=== PATIENT | female | born 1935 | race Caucasian/White ===

== ENCOUNTER 2019-03-31 08:57 | Day surgery (SDC) | payer OTHER ==
[~2019-03-31] VITALS: Ht 160 cm; Wt 73.3 kg
[~2019-03-31 08:57] MED LIST: CHOL10002 PO; Citalopram HBr20 MG PO; LEVSOD100 PO; MELA3 PO; Prilosec Otc20 MG
--- NOTE | 2019-03-31 09:43 | NUR ---
Ambulatory in Day Surgery Patient states colon prep results clear. History, Chart, Medications and Allergies reviewed before start of procedure. Pre-Op teaching done. Pt verbalizes understanding. Patient States Post-Procedure ride home has been arranged.
--- NOTE | 2019-03-31 10:58 | NUR ---
03/31/19 1058 Glo [place] History, Chart, Medications and Allergies reviewed before start of procedure. PATIENT CONFIRMS NPO STATUS AND AGREES WITH SCHEDULED PROCEDURE. MONITOR INTACT WITH CONTINUOUS PULSE OXIMETRY AND INTERMITTENT BP. O2 VIA N/C INTACT THROUGHOUT SEDATION/PROCEDURE. 3-LEAD EKG REVIEWED WITH PHYSICIAN PRIOR TO START OF PROCEDURE. PATIENT DETERMINED TO BE ASA APPROPRIATE FOR PROPOFOL SEDATION PRIOR TO START OF PROCEDURE BY DR. BOLIVAR.
--- NOTE | 2019-03-31 12:10 | NUR ---
Discharge instructions reviewed with patient. Patient verbalizes understanding. Copy given to patient to take home. Discharged via wheelchair to private car for ride home.
== END 2019-03-31 12:11 | disposition home or self-care (01) ==
LOC: ORSCMMR 08:57 → ORD 10:00 → ORSCMMR 12:11
PROVIDERS: Internal Medicine Gastroenterology
PROC: 0DBN8ZX Excision of Sigmoid Colon, Via Natural or Artificial Opening Endoscopic, Diagnostic (ICD-10-PCS; principal; 2019-03-31 10:00)
PROC: 0DBE8ZX Excision of Large Intestine, Via Natural or Artificial Opening Endoscopic, Diagnostic (ICD-10-PCS; principal; 2019-03-31 10:00)
DX: Z12.11 Encounter for screening for malignant neoplasm of colon (principal); Z86.010 Personal history of colon polyps; D12.5 Benign neoplasm of sigmoid colon; D12.2 Benign neoplasm of ascending colon; K63.5 Polyp of colon; K57.30 Diverticulosis of large intestine without perforation or abscess without bleeding; E03.9 Hypothyroidism, unspecified; K21.9 Gastro-esophageal reflux disease without esophagitis; F32.9 Major depressive disorder, single episode, unspecified; Z79.899 Other long term (current) drug therapy; Z87.891 Personal history of nicotine dependence
CPT/HCPCS: 88305; J2704; J7120

== ENCOUNTER 2019-10-12 10:06 | Inpatient (IN) | payer OTHER ==
[~2019-10-12] VITALS: Ht 157.5 cm; Wt 74.9 kg
[~2019-10-12 10:06] MED LIST changes: -CHOL10002 PO; -Citalopram HBr20 MG PO; -LEVSOD100 PO; -Prilosec Otc20 MG
[2019-10-12 10:44] LABS: Hematocrit 21.3 % (33.0-51.0); Hemoglobin 6.3 g/dL (11.5-16.0); Mean Corpuscular HGB 26.3 pg (26.0-34.0); Mean Corpuscular HGB Conc 29.6 g/dL (31.5-36.5); Mean Corpuscular Volume 89 fL (80-100); Mean Platelet Volume 10.3 fL (9.1-12.4); Platelet Count 230 K/mm3 (150-400); RDW Coefficient Variation 18.7 % (11.7-14.2); RDW Standard Deviation 59.7 fL (35.1-46.3)
[2019-10-12 11:07] LABS: BAND PERCENT MAN 2 % (0-8); BASOPHILS PERCENT MAN 0 % (0-2); EOSINOPHILS PERCENT MAN 0 % (0-6); LYMPHOCYTES PERCENT MAN 10 % (21-46); MONOCYTES PERCENT MAN 22 % (4-13); SEG NEUTROPHILS PERCENT MAN 66 % (41-73); TOTAL CELLS COUNTED 100
[2019-10-12 11:19] LABS: Alanine Aminotransfer (ALT/SGP 28 U/L (12-78); Albumin, Blood 2.4 g/dL (3.4-5.0); Albumin/Globulin Ratio 0.6 (0.8-1.8); Alk Phos 115 U/L (50-136); Anion Gap 9 mmol/L (6-16); Aspartate Aminotrans (AST/SGOT 31 U/L (12-37); Bilirubin, Total 1.3 mg/dL (0.1-1.0); Blood Urea Nitrogen 20 mg/dL (8-24); Bun/Creatinine Ratio 18.2 (12.0-20.0); CO2, Blood 25 mmol/L (21-32); Calcium, Blood 8.8 mg/dL (8.5-10.1); Chloride, Blood 99 mmol/L (98-108); Globulin, Blood 3.7 g/dL (2.2-4.0); Glomerular Filtration Rate 50 (60-); Glucose, Blood 111 mg/dL (70-99); Sodium, Blood 133 mmol/L (136-145); Total Protein, Blood 6.1 g/dL (6.4-8.2); Troponin I <0.015 ng/mL (0.000-0.040)
[2019-10-12 11:43] LABS: Source, Urine Catheter
[2019-10-12 12:05] LABS: Bilirubin, Urine Neg (Neg); Blood, Urine Neg (Neg); Glucose Qualitative, Urine Neg (Neg); Ketones, Urine Neg (Neg); Leukocyte Esterase, Urine 1+ (Neg); Nitrite, Urine Neg (Neg); Protein, Urine Neg (Neg); Urobilinogen, Urine NORM (Normal)
[2019-10-12 12:14] LABS: Appearance, Urine Hazy (Clear); Color, Urine Yellow (P-Yellow)
[2019-10-12 12:18] LABS: Amorphous Mod (0-Heavy); Bacteria Few /hpf; Red Blood Cells, Urine 0-2 /hpf (0-2); Squamous Epithelial Cells Few /hpf (Few)
[2019-10-12 12:19] LABS: Calcium Oxalate Crystals Rare /hpf
[2019-10-12 12:23] LABS: U Amphetamine Screen Not Detected; U Barbituate Screen Not Detected; U Benzodiazapine Screen Not Detected; U Buprenorphine Screen Not Detected; U Cannabinoids Screen Not Detected; U Cocaine Screen Not Detected; U Methadone Screen Not Detected; U Methamphetamine Screen Not Detected; U Opiates Screen Not Detected; U Oxycodone Screen Not Detected; U Phencyclidine Screen Not Detected; U Propoxyphene Screen Not Detected
[2019-10-12] MEDS ORDERED: Prilosec Otc20 MG PO (12:43)
[2019-10-12] MEDS ORDERED: CENTRUM SILVER1 EAC2 PO (12:44)
[2019-10-12] MEDS ORDERED: VITAMIN D325 MC3 PO (12:44)
[2019-10-12] MEDS ORDERED: Citalopram HBr20 MG PO (12:44)
[2019-10-12] MEDS ORDERED: EUTHYROX50 MCG PO (12:44)
[2019-10-12] MEDS ORDERED: GINSENG EXTRAC100 MG PO (12:45)
[2019-10-12] MEDS ORDERED: ACET500 PO (12:45)
[2019-10-12 12:53] LABS: IMMATURE RETIC FRACTION 28.9 % (2.3-16.0); RETIC HGB EQUIVALENT 25.8 pg (28.20-36.60); RETICULOCYTE ABSOLUTE 0.1421 M/mm3 (0.0200-0.1100); RETICULOCYTE COUNT PERCENT 6.18 % (0.50-2.50)
--- NOTE | 2019-10-12 13:33 | NUR ---
Telephone report received from AMIRAH Desai in the ED.
[2019-10-12 13:47] LABS: Percent Saturation 8.3 % (15.0-50.0)
--- NOTE | 2019-10-12 17:40 | NUR ---
First unit of blood transfused, and the pt was assisted to the bathroom by the PROFESSOR OF OCEANOGRAPHY. Blood pressure is improved. Pt states she had a good nap. Temperature increased slightly. The pt's lung sounds are clearer than before the transfusion was started, but fine crackles are still heard in the right lower lobe auscultated posteriorly. Second transfusion is going now.
--- NOTE | 2019-10-13 06:00 | NUR ---
SHIFT SUMMARY PT IS AN 84 Y/O FEMALE, ADMITTED FOR ANEMIA. SHE IS A&O X 2, MILDLY CONFUSED AT TIMES, AND A 1PA TO THE BATHROOM. PT RECEIVED HER SECOND OF TWO UNITS OF PRBCS, AND SPIKED A FEVER OF 101.0 AND CHILLS AFTER THE SECOND UNIT WAS COMPLETED. THE HOSPITALIST LOWELL BELTRAN WAS NOTIFIED, AND A TRANSFUSION REACTION PROTOCOL WAS STARTED. PER THE BLOOD BANK, HEMOLYTIC LAB TESTS WERE NEGATIVE. CURRENTLY AWAITING CULTURE RESULTS. TELE SHOWED NSR IN THE 70S. VITAL SIGNS OTHERWISE NORMAL. NO OTHER ACUTE CHANGES IN PT CONDITION NOTED DURING THE NIGHT. WILL CONTINUE TO MONITOR AND TREAT PER EMAR UNTIL HAND OFF TO DAY SHIFT RN.
[2019-10-13 07:13] LABS: Hematocrit 28.5 % (33.0-51.0); Hemoglobin 8.8 g/dL (11.5-16.0); Mean Corpuscular HGB 27.2 pg (26.0-34.0); Mean Corpuscular HGB Conc 30.9 g/dL (31.5-36.5); Mean Corpuscular Volume 88 fL (80-100); Mean Platelet Volume 10.4 fL (9.1-12.4); Platelet Count 225 K/mm3 (150-400); RDW Coefficient Variation 17.5 % (11.7-14.2); RDW Standard Deviation 55.6 fL (35.1-46.3); Red Blood Cell Count 3.24 M/mm3 (3.80-5.20); White Blood Cell Count 10.21 K/mm3 (4.00-11.30)
[2019-10-13 07:31] LABS: Albumin, Blood 2.3 g/dL (3.4-5.0); Albumin/Globulin Ratio 0.6 (0.8-1.8); Bilirubin, Total 1.6 mg/dL (0.1-1.0); Calcium, Blood 9.5 mg/dL (8.5-10.1); Creatinine, Blood 1.2 mg/dL (0.40-1.00); Globulin, Blood 3.8 g/dL (2.2-4.0); Potassium, Blood 4.4 mmol/L (3.5-5.5); Total Protein, Blood 6.1 g/dL (6.4-8.2)
[2019-10-13 07:58] LABS: BASOPHILS PERCENT MAN 1 % (0-2); EOSINOPHILS PERCENT MAN 0 % (0-6); LYMPHOCYTES ABSOLUTE MAN 1.22 K/mm3 (0.84-5.20); LYMPHOCYTES PERCENT MAN 12 % (21-46); MONOCYTES ABSOLUTE MAN 2.34 K/mm3 (0.16-1.47); MONOCYTES PERCENT MAN 23 % (4-13); NEUTROPHILS ABSOLUTE MAN 6.53 K/mm3 (1.96-9.15); SEG NEUTROPHILS PERCENT MAN 64 % (41-73); TOTAL CELLS COUNTED 100
[2019-10-13 10:41] LABS: International Normalized Ratio 1.15; Prothrombin Time Results 12.2 Sec (9.7-11.5)
[2019-10-13 10:49] LABS: Bilirubin, Direct 0.4 mg/dL (0.0-0.3); Bilirubin, Indirect 0.8 mg/dL (0.1-0.7); Bilirubin, Total 1.2 mg/dL (0.1-1.0)
[2019-10-13 14:15] LABS: BASOPHILS ABSOLUTE AUTO 0.05 K/mm3 (0.00-0.23); BASOPHILS PERCENT AUTO 1 % (0-2); EOSINOPHILS ABSOLUTE AUTO 0.04 K/mm3 (0.00-0.68); EOSINOPHILS PERCENT AUTO 0 % (0-6)
[2019-10-13 14:15] LABS: Stool Occult Blood Guaiac 1 Neg (Neg)
[2019-10-13 14:17] LABS: IMMATURE GRAN ABSOLUTE AUTO 0.07 K/mm3 (0.00-0.10); IMMATURE GRAN PERCENT AUTO 1 % (0-1); LYMPHOCYTES ABSOLUTE AUTO 1.53 K/mm3 (0.84-5.20); LYMPHOCYTES PERCENT AUTO 15 % (21-46); MONOCYTES ABSOLUTE AUTO 1.98 K/mm3 (0.16-1.47); MONOCYTES PERCENT AUTO 19 % (4-13); NEUTROPHILS PERCENT AUTO 65 % (41-73)
--- NOTE | 2019-10-13 19:32 | NUR ---
SHIFT SUMMARY: NO ACUTE EVENTS THIS SHIFT. DENIED PAIN. NO EVENTS ON TELEMETRY, SR 70-90. HAD CT ABD/PELVIS, TOLERATED WELL. POOR APPETITE AND PO INTAKE. DR. TREJO SAW PATIENT AT 1120 THIS MORNING. SPOKE WITH DAUGHTER JAIRON THIS EVENING, GAVE UPDATE ON PATIENT CONDITION.
[2019-10-13 23:30] LABS: Source, Urine Clean Catch
[2019-10-13 23:32] LABS: Bilirubin, Urine Neg (Neg); Blood, Urine Neg (Neg); Glucose Qualitative, Urine Neg (Neg); Ketones, Urine Neg (Neg); Leukocyte Esterase, Urine 1+ (Neg); Nitrite, Urine Neg (Neg); Protein, Urine 1+ (Neg); Specific Gravity, Urine 1.025 (1.003-1.022); Urobilinogen, Urine NORM (Normal)
[2019-10-13 23:40] LABS: Appearance, Urine Hazy (Clear); Color, Urine Yellow (P-Yellow)
[2019-10-13 23:41] LABS: Amorphous Light (0-Heavy); Bacteria Few /hpf; Red Blood Cells, Urine Not Seen /hpf (0-2); Squamous Epithelial Cells Many /hpf (Few)
--- NOTE | 2019-10-14 06:25 | NUR ---
SHIFT SUMMARY PATIENT VERY TIRED OVERNIGHT, HAD A DIFFICULT TIME STAYING AWAKE DURING REGULAR WAKING HOURS. SHE HAD NO COMPLAINTS OF PAIN. PATIENT HAD A FEVER OF 100.7, PATIENT GIVEN TYLENOL, EXTRA BLANKETS REMOVED, AND THERMOSTAT IN ROOM TURNED DOWN, TEMPERATURE THEN RETURNED TO NORMAL RANGE. IV PATENT AND FLUSHED. BED IN LOWEST POSITION WITH WHEELS LOCKED AND ALARM ON. CALL LIGHT WITHIN REACH. REPORT GIVEN TO ONCOMING RN.
[2019-10-14 06:30] LABS: Cancer Antigen 125 11.4 U/mL (1.5-35.0); Cancer Antigen 19-9 3.6 U/mL (2.0-37.0); Carcinoembryonic Antigen 1.7 ng/mL (0.0-3.0)
[2019-10-14 08:11] LABS: COMPLEMENT C3, SERUM 123 mg/dL (82-167); COMPLEMENT C4, SERUM 9 mg/dL (14-44); HAPTOGLOBIN 195 mg/dL (41-333)
[2019-10-14 08:14] LABS: BASOPHILS ABSOLUTE AUTO 0.04 K/mm3 (0.00-0.23); BASOPHILS PERCENT AUTO 0 % (0-2); EOSINOPHILS ABSOLUTE AUTO 0.08 K/mm3 (0.00-0.68); EOSINOPHILS PERCENT AUTO 1 % (0-6); Hematocrit 29.1 % (33.0-51.0); Hemoglobin 8.9 g/dL (11.5-16.0); Mean Corpuscular HGB 27.2 pg (26.0-34.0); Mean Corpuscular HGB Conc 30.6 g/dL (31.5-36.5); Mean Corpuscular Volume 89 fL (80-100); Mean Platelet Volume 10.3 fL (9.1-12.4); Platelet Count 201 K/mm3 (150-400); RDW Coefficient Variation 17.7 % (11.7-14.2); RDW Standard Deviation 56.1 fL (35.1-46.3); Red Blood Cell Count 3.27 M/mm3 (3.80-5.20); White Blood Cell Count 9.54 K/mm3 (4.00-11.30)
[2019-10-14 08:17] LABS: IMMATURE GRAN ABSOLUTE AUTO 0.04 K/mm3 (0.00-0.10); IMMATURE GRAN PERCENT AUTO 0 % (0-1); LYMPHOCYTES ABSOLUTE AUTO 1.13 K/mm3 (0.84-5.20); LYMPHOCYTES PERCENT AUTO 12 % (21-46); MONOCYTES ABSOLUTE AUTO 2.05 K/mm3 (0.16-1.47); MONOCYTES PERCENT AUTO 22 % (4-13); NEUTROPHILS PERCENT AUTO 65 % (41-73)
[2019-10-14 08:36] LABS: Albumin, Blood 2.3 g/dL (3.4-5.0); Albumin/Globulin Ratio 0.8 (0.8-1.8); Bilirubin, Total 1.1 mg/dL (0.1-1.0); Bun/Creatinine Ratio 20.2 (12.0-20.0); Calcium, Blood 8.8 mg/dL (8.5-10.1); Creatinine, Blood 1.24 mg/dL (0.40-1.00); Globulin, Blood 2.9 g/dL (2.2-4.0); Potassium, Blood 4.6 mmol/L (3.5-5.5); Total Protein, Blood 5.2 g/dL (6.4-8.2)
--- NOTE | 2019-10-14 18:18 | NUR ---
SHIFT SUMMARY: PT ANXIOUS MOST OF THE DAY WAITING FOR LIVER BIOPSY. PROVIDED HER WITH VERBAL EDUCATION REGARDING PROCEDURE AND SHE VERBALIZED UNDERSTANDING. TOLERATED PROCEDURES WELL. HAS SMALL ADHESIVE BANDAGE IN EPIGASTRIC AREA, NO E/O BLEEDING OR HEMATOMA. NO EVENTS ON TELEMETRY, SR 80'S. GETTING UP TO BR AND CHAIR FOR MEALS WITH SBA, DENIES DIZZINESS. DENIES PAIN. REFUSING SCD'S. ADEQUATE PO INTAKE.
--- NOTE | 2019-10-15 06:16 | NUR ---
SHIFT SUMMARY PATIENT SLEPT WELL OVERNIGHT. HAD NO SIGNS OF BLEEDING. PATIENT SEEMED MORE AWAKE AND ALERT THAN YESTERDAY. SHE ONLY HAD COMPLAINT OF A HEADACHE FOR WHICH SHE RECEIVED TYLENOL PER EMAR. IV PATENT AND FLUSHED. BED IN LOWEST POSITION WITH WHEELS LOCKED AND ALARM ON. CALL LIGHT WITHIN REACH. REPORT GIVEN TO ONCOMING AMIRAH.
[2019-10-15 12:10] LABS: A/G RATIO 0.8 (0.7-1.7); ALBUMIN 2.3 g/dL (2.9-4.4); ALPHA-1-GLOBULIN 0.3 g/dL (0.0-0.4); ALPHA-2-GLOBULIN 0.8 g/dL (0.4-1.0); BETA GLOBULIN 0.9 g/dL (0.7-1.3); GAMMA GLOBULIN 0.9 g/dL (0.4-1.8); GLOBULIN, TOTAL 2.9 g/dL (2.2-3.9); M-SPIKE Not Observed g/dL (Not Observed); PROTEIN, TOTAL, SERUM 5.2 g/dL (6.0-8.5)
[2019-10-15 13:08] LABS: ANTI-DSDNA ANTIBODIES 2 IU/mL (0-9); RNP ANTIBODIES 0.3 AI (0.0-0.9); SJOGREN'S ANTI-SS-A <0.2 AI (0.0-0.9); SMITH ANTIBODIES <0.2 AI (0.0-0.9)
--- NOTE | 2019-10-15 18:03 | NUR ---
PATIENT IS ALERT AND ORIENTED AND COOPERATIVE WITH CARE. PATIENT REQUESTED TO DISCHARGE HOME TOMORROW INSTEAD OF TODAY. PATIENT SUZANNE HAVE HELP AT HOME FROM HER DAUGHTER. SHE IS UP TO THE CHAIR 1PA. SHE SHOWERED TODAY. NO COMPLAINT'S OF PAIN. COMPLAINED OF CONGESTION, GIVEN FLONASE PER EMAR. WILL CONTINUE TO MONITOR.
--- NOTE | 2019-10-16 04:13 | NUR ---
SHIFT SUMMARY- PT. A&O, PLEASANT, AND COOPERATIVE WITH CARE. PT. ASLEEP MOST OF THE NIGHT, NO APPRENT DISTRESS NOTED, AND NO COMPLAINTS THIS SHIFT. PT. WAS INCONTINENT LAST NIGHT. ATTENDS IN PLACE. REPOSTIONED PRN AND FOR COMFORT. PLAN FOR POSS D/C IN AM. CALL LIGHT WITHIN REACH, SIDE RAILS UPX2, AND BED ALARM ON FOR SAFETY. WILL CONT TO MONITOR.
[2019-10-16 09:13] LABS: BASOPHILS ABSOLUTE AUTO 0.04 K/mm3 (0.00-0.23); BASOPHILS PERCENT AUTO 0 % (0-2); EOSINOPHILS ABSOLUTE AUTO 0.04 K/mm3 (0.00-0.68); EOSINOPHILS PERCENT AUTO 0 % (0-6); Hematocrit 29.5 % (33.0-51.0); Hemoglobin 9.1 g/dL (11.5-16.0); Mean Corpuscular HGB Conc 30.8 g/dL (31.5-36.5); Mean Corpuscular Volume 88 fL (80-100); Mean Platelet Volume 9.8 fL (9.1-12.4); Platelet Count 172 K/mm3 (150-400); RDW Coefficient Variation 17.9 % (11.7-14.2); RDW Standard Deviation 56.8 fL (35.1-46.3); Red Blood Cell Count 3.37 M/mm3 (3.80-5.20); White Blood Cell Count 10.13 K/mm3 (4.00-11.30)
[2019-10-16 09:15] LABS: IMMATURE GRAN ABSOLUTE AUTO 0.06 K/mm3 (0.00-0.10); IMMATURE GRAN PERCENT AUTO 1 % (0-1); LYMPHOCYTES ABSOLUTE AUTO 1.14 K/mm3 (0.84-5.20); LYMPHOCYTES PERCENT AUTO 11 % (21-46); MONOCYTES ABSOLUTE AUTO 2.04 K/mm3 (0.16-1.47); MONOCYTES PERCENT AUTO 20 % (4-13); NEUTROPHILS ABSOLUTE AUTO 6.81 K/mm3 (1.96-9.15); NEUTROPHILS PERCENT AUTO 67 % (41-73)
[2019-10-16 09:28] LABS: Bun/Creatinine Ratio 24.1 (12.0-20.0); Calcium, Blood 9.1 mg/dL (8.5-10.1); Potassium, Blood 4.2 mmol/L (3.5-5.5)
--- NOTE | 2019-10-16 15:40 | NUR ---
IV RITUXAN WAS STARTED AT 1400 AFTER PREMEDS 25 MIN EARLIER. SHE HAS BEEN INSTRUCTED TO NOTIFY ME IF SHE HAS ANY CHILLS, FEVER, SOB, PALPITATIONS OR FEELS ODD IN ANY OTHER WAY. RATE STARTED AT 41 MLS/HR AND HAS BEEN INCREASED BY 41 MLS/HR EVERY 30 MIN SINCE. SHE HAS BEEN MOSTLY SLEEPING AND HAS HAD NO COMPLAINTS. NO RESPIRATORY DISTRESS. IV SITE WNL.
--- NOTE | 2019-10-16 18:41 | NUR ---
SHIFT SUMMARY JOCE COMPLAINED OF MILD L SHOULDER PAIN AT HER JOINT THAT WAS MADE WORSE BY MOVEMENT, MADE BETTER BY TYLENOL. RECEIVED FIRST DOSE OF CHEMO, TOLERATED WELL. SON CAME TO VISIT. DR TREJO CAME TO SEE PT IN ORDER PULLER. INCONTINENT/CONTINENT THIS SHIFT. SCHEDULED TOILETING DONE, BUT PT USUALLY WET PRIOR TO GOING TO BR. SBA TO BR. UP IN CHAIR FOR MEALS. TELE DC'D. TOOK MEDS PRESCRIBED. WCTM
--- NOTE | 2019-10-16 19:47 | NUR ---
Met with patient and her son this morning. They had may questions. Pt stressing over quality of life. Review of potential symptoms and needs. Discussed strategies of maintaining quality of life. Review of was to conserve energy protect from fall risk and maintain appetite and some pleasure with foods. pt is willing to ry treatment and son gave her frequent rassurance that they will rsally the trops and take care of her. This gave her great comfort. Will return to speak with her alone and will have chaplian see her. Will reivew symptoms with her to report to her oncologist and give her some diversion tactics.
--- NOTE | 2019-10-17 04:40 | NUR ---
SHIFT SUMMARY- PT. HAD NO ACUTE EVENTS OVERNIGHT. ASLEEP T/O MOST OF THE NIGHT. NO APPARENT DISTRESS NOTED. INCONT, ATTENDS CHANGE DONE SEVERAL TIMES DURING THE SHIFT AND REPOSITIONED FOR COMFORT. PT. APPEARED VERY TIRED, NO COMPLAINTS OF PAIN OR DISCOMFORT. VSS, ON 2L NC. CALL LIGHT WITHIN REACH AND SIDE RAILS UPX2. WILL CONT TO MONITOR.
[2019-10-17 05:43] LABS: Bun/Creatinine Ratio 24.8 (12.0-20.0); Calcium, Blood 9.4 mg/dL (8.5-10.1); Creatinine, Blood 1.05 mg/dL (0.40-1.00); Potassium, Blood 4.8 mmol/L (3.5-5.5)
--- NOTE | 2019-10-17 10:58 | NUR ---
Pt affect bright states she was not incontinenet last night. first time in a long long time. Son at bedside questions on plan of care review of clinic setting and appointments scheduling advised first week plan for lot of education on disease process and treatment potocols.
--- NOTE | 2019-10-17 13:47 | NUR ---
will discuss a polst form with her son and send AD home with her.
--- NOTE | 2019-10-17 16:57 | NUR ---
SHIFT SUMMARY PT A/O X3, PLEASANT, AND COOPERATIVE WITH CARE. WAS FATIGUED AT THE BEGINNING OF THE SHIFT BUT THE FATIGUE HAS SUBSIDED. NO COMPLAINTS OF PAIN OR DISCOMFORT THIS SHIFT. 1 ASSIST TO THE BA W/FWW. NEED HOME O2 EVAL AND NIGH O2 MONITORING. MAY DC TOMORROW. VSS, WILL CONTINUE TO MONITOR.
--- NOTE | 2019-10-18 04:44 | NUR ---
SUMMARY PT HAD NO ISSUES NOTED. PT SLEEP STUDY IN PROGRESS. PT DENIES ANY DISCOMFORT OR SOB. PT HAS BEEN CHANGED NEEDED FOR INCONTINENCE. PT CURRENTLY AWAKE AFTER BEING CHANGED. CALL LIGHT IN REACH.
--- NOTE | 2019-10-18 07:10 | NUR ---
ASSUMED CARE: PT RESTING QUIETLY AT THIS TIME. BED ALARM ON. NO ACUTE NEEDS OR CONCERNS AT THIS TIME.
--- NOTE | 2019-10-18 13:20 | NUR ---
IV DC'D WNL. PT TAKEN OUT VIA WHEEL CHAIR BY VOLUNTEER. DISCHARGE INSTRUCTIONS DISCUSSED WITH PT AND SON. PT AWARE OF FOLLOW UP APPOINTMENTS. NO FURTHER NEEDS OR CONCERNS
--- NOTE | 2019-10-18 17:02 | NUR ---
theraputic visit with pt this morning before discharge for reassurances.
[2019-10-19 15:09] LABS: ANA DIRECT Positive (Negative); ANTI-CENTROMERE B ANTIBODIES <0.2 AI (0.0-0.9); ANTI-DNA (DS) AB QN 2 IU/mL (0-9); ANTI-JO-1 <0.2 AI (0.0-0.9); ANTICHROMATIN ANTIBODIES <0.2 AI (0.0-0.9); ANTIMYELOPEROXIDASE (MPO) ABS <9.0 U/mL (0.0-9.0); ANTIPROTEINASE 3 (PR-3) ABS <3.5 U/mL (0.0-3.5); ANTIRIBOSOMAL P ANTIBODIES <0.2 AI (0.0-0.9); ANTISCLERODERMA-70 ANTIBODIES <0.2 AI (0.0-0.9); ATYPICAL PANCA <1:20 titer (Neg:<1:20); CYTOPLASMIC (C-ANCA) <1:20 titer (Neg:<1:20); PERINUCLEAR (P-ANCA) <1:20 titer (Neg:<1:20); RNP ANTIBODIES 0.3 AI (0.0-0.9); SJOGREN'S ANTI-SS-A <0.2 AI (0.0-0.9); SJOGREN'S ANTI-SS-B 1.1 AI (0.0-0.9); SMITH ANTIBODIES <0.2 AI (0.0-0.9); SMITH/RNP ANTIBODIES <0.2 AI (0.0-0.9)
[2019-10-19 18:14] LABS: Test Name 3001495
== END 2019-10-18 13:19 | disposition home or self-care (01) | DRG 841 ==
LOC: ER 10:06 → MEDS 13:12 → ENPENDDIS 10-18 12:38 → MEDS 10-18 13:19
PROVIDERS: Emergency Medicine; Internal Medicine; Internal Medicine Hematology & Oncology; Nurse Practitioner Acute Care; Pathology Clinical Pathology/Laboratory Medicine; ADMIT Internal Medicine
PROC: 0FB23ZX Excision of Left Lobe Liver, Percutaneous Approach, Diagnostic (ICD-10-PCS; principal; 2019-10-14)
DX: C83.30 Diffuse large B-cell lymphoma, unspecified site (principal); E87.1 Hypo-osmolality and hyponatremia; E03.9 Hypothyroidism, unspecified; Z87.891 Personal history of nicotine dependence; N18.3 Chronic kidney disease, stage 3 (moderate); E78.5 Hyperlipidemia, unspecified; K21.9 Gastro-esophageal reflux disease without esophagitis; R09.02 Hypoxemia; Z20.828 Contact with and (suspected) exposure to other viral communicable diseases; D63.0 Anemia in neoplastic disease
CPT/HCPCS: 36415; 47000; 70450; 71045; 71260; 74177; 77012; 80048; 80053; 81001; 82105; 82247; 82248; 82272; 82378; 82607; 82728; 82746; 83010; 83520; 83540; 83550; 83615; 83880; 84145; 84165; 84484; 85025; 85045; 85060; 85610; 85730; 86160; 86225; 86235; 86256; 86301; 86304; 86430; 86850; 86880; 86900; 86901; 86923; 87040; 87086; 88307; 88341; 88342; 93005; 93010; 93306; 94762; 97110; 97162; 97165; 97530; 97535; 99285-25; A9270; A9270-GY; J1100; J1200; J1940; J2405; J7040; J9312; P9016; Q0163; Q9967; U0002

== ENCOUNTER 2020-01-10 15:38 | Emergency (ER) | payer OTHER ==
[~2020-01-10] VITALS: Ht 157.5 cm; Wt 70.3 kg
[~2020-01-10 15:38] MED LIST changes: +ACET500 PO; +CENTRUM SILVER1 EAC2 PO; +Citalopram HBr20 MG PO; +EUTHYROX50 MCG PO; +GINSENG EXTRAC100 MG PO; +Prilosec Otc20 MG PO; +VITAMIN D325 MC3 PO
[2020-01-10] MEDS ORDERED: OMEP20ER PO (16:15)
[2020-01-10] MEDS ORDERED: ONDA8 PO (16:16)
[2020-01-10 16:39] LABS: BASOPHILS ABSOLUTE AUTO 0.01 K/mm3 (0.00-0.23); BASOPHILS PERCENT AUTO 0 % (0-2); EOSINOPHILS ABSOLUTE AUTO 0.04 K/mm3 (0.00-0.68); EOSINOPHILS PERCENT AUTO 0 % (0-6); Hematocrit 26.1 % (33.0-51.0); Hemoglobin 8.9 g/dL (11.5-16.0); IMMATURE GRAN ABSOLUTE AUTO 0.06 K/mm3 (0.00-0.10); IMMATURE GRAN PERCENT AUTO 1 % (0-1); LYMPHOCYTES ABSOLUTE AUTO 0.53 K/mm3 (0.84-5.20); LYMPHOCYTES PERCENT AUTO 5 % (21-46); MONOCYTES ABSOLUTE AUTO 0.76 K/mm3 (0.16-1.47); MONOCYTES PERCENT AUTO 8 % (4-13); Mean Corpuscular HGB 31.7 pg (26.0-34.0); Mean Corpuscular HGB Conc 34.1 g/dL (31.5-36.5); Mean Corpuscular Volume 93 fL (80-100); Mean Platelet Volume 9.8 fL (9.1-12.4); NEUTROPHILS ABSOLUTE AUTO 8.56 K/mm3 (1.96-9.15); NEUTROPHILS PERCENT AUTO 86 % (41-73); Platelet Count 160 K/mm3 (150-400); RDW Coefficient Variation 16.9 % (11.7-14.2); RDW Standard Deviation 56.8 fL (35.1-46.3); Red Blood Cell Count 2.81 M/mm3 (3.80-5.20); White Blood Cell Count 9.96 K/mm3 (4.00-11.30)
[2020-01-10 16:48] LABS: Albumin, Blood 2.7 g/dL (3.4-5.0); Albumin/Globulin Ratio 0.7 (0.8-1.8); Bilirubin, Total 0.5 mg/dL (0.1-1.0); Bun/Creatinine Ratio 15.5 (12.0-20.0); Calcium, Blood 9.2 mg/dL (8.5-10.1); Creatinine, Blood 1.16 mg/dL (0.40-1.00); Globulin, Blood 3.8 g/dL (2.2-4.0); Potassium, Blood 3.7 mmol/L (3.5-5.5); Total Protein, Blood 6.5 g/dL (6.4-8.2)
[2020-01-10 16:50] LABS: International Normalized Ratio 1.06; Prothrombin Time Results 11.3 Sec (9.7-11.5)
[2020-01-10 18:32] LABS: Influenza A, PCR Negative (NEGATIVE); Influenza B, PCR Negative (NEGATIVE); Resp Syncytial Virus, PCR Negative (NEGATIVE); SARS-Cov-2 (COVID-19) PCR, MMC Negative (NEGATIVE)
[2020-01-10 19:39] LABS: Bilirubin, Urine Neg (Neg); Blood, Urine 1+ (Neg); Color, Urine Yellow (P-Yellow); Glucose Qualitative, Urine Neg (Neg); Ketones, Urine Neg (Neg); Leukocyte Esterase, Urine 2+ (Neg); Nitrite, Urine Neg (Neg); Protein, Urine 1+ (Neg); Source, Urine Catheter; Urobilinogen, Urine NORM (Normal); pH, Urine 6.5 (5.0-8.0)
[2020-01-10 20:14] LABS: Appearance, Urine Hazy (Clear)
[2020-01-10 20:15] LABS: Red Blood Cells, Urine 0-2 /hpf (0-2); Squamous Epithelial Cells Few /hpf (Few)
[2020-01-10 20:17] LABS: Hyaline Casts Rare /lpf (0-2); Transitional Epithelial Cells Mod /hpf (0-Rare)
[2020-01-10 20:18] LABS: Bacteria Rare /hpf
[2020-01-10] MEDS ORDERED: Cipro500 MG PO (20:38)
[2020-01-10] MEDS ORDERED: Flagyl500 MG PO (20:38)
[2020-01-10] MEDS ORDERED: ONDA4ODT MM (20:38)
[2020-01-10] MEDS ORDERED: LOPE2C PO (20:38)
== END 2020-01-10 22:08 | disposition home or self-care (01) ==
LOC: ER 15:38
PROVIDERS: Emergency Medicine
DX: K52.9 Noninfective gastroenteritis and colitis, unspecified (principal); N18.30 Chronic kidney disease, stage 3 unspecified; E78.5 Hyperlipidemia, unspecified; E03.9 Hypothyroidism, unspecified; K21.9 Gastro-esophageal reflux disease without esophagitis; F32.9 Major depressive disorder, single episode, unspecified; Z20.828 Contact with and (suspected) exposure to other viral communicable diseases; Z88.4 Allergy status to anesthetic agent; Z79.899 Other long term (current) drug therapy; Z87.891 Personal history of nicotine dependence
CPT/HCPCS: 0241U; 36415; 71045; 71260; 74177; 80053; 81001; 83605; 85025; 85610; 85730; 86850; 86900; 86901; 87086; 93005; 93010; 96361; 96365-59; 99285-25; A9270-GY; J0696; J7030; P9612; Q9967

== ENCOUNTER 2020-01-29 09:38 | Emergency (ER) | payer OTHER ==
[~2020-01-29] VITALS: Ht 157.5 cm; Wt 67.6 kg
[~2020-01-29 09:38] MED LIST changes: +AZIT250 PO; +Cipro500 MG PO; +Flagyl500 MG PO; +Flonase 0.05% N16 GM; +LOPE2C PO; +OMEP20ER PO; +ONDA4ODT MM; +ONDA8 PO; +PRED20 PO; +PROAIR DIGIHAL90 MCG INH; +TUMS500 MG PO
[2020-01-29 11:02] LABS: Base Excess Venous 6.7 mmol/L; PO2 Venous 63.4 mmHg (38-42); pH Blood Venous 7.49 (7.34-7.37)
[2020-01-29 11:04] LABS: BASOPHILS ABSOLUTE AUTO 0.03 K/mm3 (0.00-0.23); BASOPHILS PERCENT AUTO 0 % (0-2); EOSINOPHILS PERCENT AUTO 0 % (0-6); Hematocrit 26.8 % (33.0-51.0); Hemoglobin 8.8 g/dL (11.5-16.0); IMMATURE GRAN PERCENT AUTO 1 % (0-1); LYMPHOCYTES ABSOLUTE AUTO 0.12 K/mm3 (0.84-5.20); LYMPHOCYTES PERCENT AUTO 1 % (21-46); MONOCYTES ABSOLUTE AUTO 0.92 K/mm3 (0.16-1.47); MONOCYTES PERCENT AUTO 8 % (4-13); Mean Corpuscular HGB 31.3 pg (26.0-34.0); Mean Corpuscular HGB Conc 32.8 g/dL (31.5-36.5); Mean Corpuscular Volume 95 fL (80-100); Mean Platelet Volume 9.2 fL (9.1-12.4); NEUTROPHILS ABSOLUTE AUTO 11.14 K/mm3 (1.96-9.15); NEUTROPHILS PERCENT AUTO 91 % (41-73); Platelet Count 210 K/mm3 (150-400); RDW Coefficient Variation 18.2 % (11.7-14.2); RDW Standard Deviation 61.3 fL (35.1-46.3); Red Blood Cell Count 2.81 M/mm3 (3.80-5.20); White Blood Cell Count 12.31 K/mm3 (4.00-11.30)
[2020-01-29 11:25] LABS: Troponin I <0.015 ng/mL (0.000-0.040)
[2020-01-29 11:26] LABS: Alanine Aminotransfer (ALT/SGP 26 U/L (12-78); Albumin, Blood 2.5 g/dL (3.4-5.0); Albumin/Globulin Ratio 0.7 (0.8-1.8); Alk Phos 103 U/L (50-136); Anion Gap 7 mmol/L (6-16); Aspartate Aminotrans (AST/SGOT 46 U/L (12-37); Bilirubin, Total 0.9 mg/dL (0.1-1.0); Blood Urea Nitrogen 12 mg/dL (8-24); Bun/Creatinine Ratio 12.8 (12.0-20.0); CO2, Blood 30 mmol/L (21-32); Calcium, Blood 8.6 mg/dL (8.5-10.1); Chloride, Blood 93 mmol/L (98-108); Creatinine, Blood 0.94 mg/dL (0.40-1.00); Globulin, Blood 3.6 g/dL (2.2-4.0); Glomerular Filtration Rate >60 (60-); Glucose, Blood 92 mg/dL (70-99); Potassium, Blood 3.8 mmol/L (3.5-5.5); Sodium, Blood 130 mmol/L (136-145); Total Protein, Blood 6.1 g/dL (6.4-8.2)
[2020-01-29] MEDS ORDERED: Protonix40 MG PO (13:27)
[2020-01-29] MEDS ORDERED: Norco 5-325 Ta1 EACH PO (13:27)
[2020-01-29] MEDS ORDERED: ONDA4ODT SL (13:27)
== END 2020-01-29 14:21 | disposition home or self-care (01) ==
LOC: ER 09:38
PROVIDERS: Emergency Medicine
DX: K44.9 Diaphragmatic hernia without obstruction or gangrene (principal); C83.30 Diffuse large B-cell lymphoma, unspecified site; N18.30 Chronic kidney disease, stage 3 unspecified; E78.5 Hyperlipidemia, unspecified; E03.9 Hypothyroidism, unspecified; K21.9 Gastro-esophageal reflux disease without esophagitis; F32.9 Major depressive disorder, single episode, unspecified; Z87.891 Personal history of nicotine dependence; Z79.899 Other long term (current) drug therapy; Z79.52 Long term (current) use of systemic steroids; Z88.4 Allergy status to anesthetic agent
CPT/HCPCS: 36415; 71260; 74177; 80053; 82803; 83690; 83880; 84484; 85025; 93005; 93010; 96361; 96374; 96375; 99285-25; J2405; J3010; J7030; Q9967

== ENCOUNTER 2020-02-04 19:00 | Emergency (ER) | payer OTHER ==
[~2020-02-04] VITALS: Ht 157.5 cm; Wt 67.6 kg
[~2020-02-04 19:00] MED LIST changes: +Norco 5-325 Ta1 EACH PO; +ONDA4ODT SL; +Protonix40 MG PO
== END 2020-02-04 23:22 | disposition home or self-care (01) ==
LOC: ER 19:00
DX: S01.01XA Laceration without foreign body of scalp, initial encounter (principal); N18.30 Chronic kidney disease, stage 3 unspecified; E78.5 Hyperlipidemia, unspecified; E03.9 Hypothyroidism, unspecified; K21.9 Gastro-esophageal reflux disease without esophagitis; Z79.899 Other long term (current) drug therapy; Z23 Encounter for immunization; Z79.52 Long term (current) use of systemic steroids; Z88.4 Allergy status to anesthetic agent; Z87.891 Personal history of nicotine dependence; W01.198A Fall on same level from slipping, tripping and stumbling with subsequent striking against other object, initial encounter
CPT/HCPCS: 12002; 70450; 90471; 99284-25

== ENCOUNTER 2020-02-08 08:19 | Inpatient (IN) | payer OTHER ==
[~2020-02-08] VITALS: Ht 165.1 cm; Wt 76.1 kg
[2020-02-08 08:58] LABS: BASOPHILS ABSOLUTE AUTO 0.02 K/mm3 (0.00-0.23); BASOPHILS PERCENT AUTO 0 % (0-2); EOSINOPHILS PERCENT AUTO 0 % (0-6); Hematocrit 25.2 % (33.0-51.0); Hemoglobin 8.1 g/dL (11.5-16.0); IMMATURE GRAN ABSOLUTE AUTO 0.21 K/mm3 (0.00-0.10); IMMATURE GRAN PERCENT AUTO 2 % (0-1); LYMPHOCYTES ABSOLUTE AUTO 1.03 K/mm3 (0.84-5.20); LYMPHOCYTES PERCENT AUTO 11 % (21-46); MONOCYTES ABSOLUTE AUTO 0.55 K/mm3 (0.16-1.47); MONOCYTES PERCENT AUTO 6 % (4-13); Mean Corpuscular HGB 30.3 pg (26.0-34.0); Mean Corpuscular HGB Conc 32.1 g/dL (31.5-36.5); Mean Corpuscular Volume 94 fL (80-100); Mean Platelet Volume 10.4 fL (9.1-12.4); NEUTROPHILS ABSOLUTE AUTO 7.89 K/mm3 (1.96-9.15); NEUTROPHILS PERCENT AUTO 81 % (41-73); Platelet Count 113 K/mm3 (150-400); RDW Coefficient Variation 18.4 % (11.7-14.2); RDW Standard Deviation 62.2 fL (35.1-46.3); Red Blood Cell Count 2.67 M/mm3 (3.80-5.20)
[2020-02-08 09:13] LABS: Source, Urine Catheter
[2020-02-08 09:17] LABS: Albumin, Blood 2.5 g/dL (3.4-5.0); Albumin/Globulin Ratio 0.7 (0.8-1.8); Bilirubin, Total 0.7 mg/dL (0.1-1.0); Bun/Creatinine Ratio 19.6 (12.0-20.0); Calcium, Blood 8.9 mg/dL (8.5-10.1); Creatinine, Blood 1.12 mg/dL (0.40-1.00); Globulin, Blood 3.4 g/dL (2.2-4.0); Potassium, Blood 4.6 mmol/L (3.5-5.5); Total Protein, Blood 5.9 g/dL (6.4-8.2)
[2020-02-08 09:20] LABS: Bilirubin, Urine Neg (Neg); Blood, Urine 2+ (Neg); Glucose Qualitative, Urine Neg (Neg); Ketones, Urine Neg (Neg); Leukocyte Esterase, Urine 1+ (Neg); Nitrite, Urine Neg (Neg); Protein, Urine 4+ (Neg); Urobilinogen, Urine NORM (Normal)
[2020-02-08 09:38] LABS: Appearance, Urine Hazy (Clear); Color, Urine Yellow (P-Yellow)
[2020-02-08 09:41] LABS: Bacteria Many /hpf; Squamous Epithelial Cells Many /hpf (Few)
[2020-02-08 09:42] LABS: Amorphous Light (0-Heavy); Transitional Epithelial Cells Few /hpf (0-Rare)
[2020-02-08 10:03] LABS: Influenza A, PCR Negative (NEGATIVE); Influenza B, PCR Negative (NEGATIVE); Resp Syncytial Virus, PCR Negative (NEGATIVE); SARS-Cov-2 (COVID-19) PCR, MMC Negative (NEGATIVE)
--- NOTE | 2020-02-08 18:32 | NUR ---
SHIFT SUMMARY PT IS A&OX4. PT WAS A ER ADMIT THIS AFTERNOON. PT IS CURENTLY ON 2L O2 NC. PT DOES NOT USE O2 AT HOME. PT SKIN IS DRY WITH SCRATCHES ON THE ABDOMEN. PT COMPLAINS OF BEING ITCHY, LOTION APPLIED TO SKIN. PT HAS LIVER CANCER AND LAST CHEM WAS 2 WEEKS AGO. PT HAS AN 20G IV IN L FOREARM. PT HAS NOT GOTTEN OUT OF BED AND IS INCONNENT OF URINE AT BASELINE. PT FOLLOWS DIRECTION AND IS ABLE TO CHANGE POSITIONS IN BED WITH ASSISTANCE. PT JUST FINISHED DOSE OF IV ANTIBIOTICS AND IS CURENTLY SLEEPING IN ROOM WITH CALL LIGHT ON LAP.
--- NOTE | 2020-02-09 05:44 | NUR ---
HOMEBOUND TEACHER SUMMARY PT A&0X4, ABLE TO MAKE NEEDS KNOWN. CALLS APPROPRIATELY FOR ASSISTANCE. PLEASANT AND COOPERATIVE TO CARE. PT MEDICATED FOR PAIN PER EMAR. NO C/O CP OR SOB, CURRENTLY ON O2 2LPM VIA NC. PT MEDICATED FOR NAUSEA X1 THIS SHIFT. PT CALM AND RESTED IN BED AT THIS TIME. BED AT LOWEST POSITION. CALL LIGHT WITHIN REACH.
[2020-02-09 05:49] LABS: BASOPHILS ABSOLUTE AUTO 0.01 K/mm3 (0.00-0.23); BASOPHILS PERCENT AUTO 0 % (0-2); EOSINOPHILS PERCENT AUTO 0 % (0-6); Hematocrit 20.4 % (33.0-51.0); Hemoglobin 6.5 g/dL (11.5-16.0); IMMATURE GRAN ABSOLUTE AUTO 0.05 K/mm3 (0.00-0.10); IMMATURE GRAN PERCENT AUTO 1 % (0-1); LYMPHOCYTES PERCENT AUTO 6 % (21-46); MONOCYTES ABSOLUTE AUTO 0.28 K/mm3 (0.16-1.47); MONOCYTES PERCENT AUTO 6 % (4-13); Mean Corpuscular HGB 30.1 pg (26.0-34.0); Mean Corpuscular HGB Conc 31.9 g/dL (31.5-36.5); Mean Corpuscular Volume 94 fL (80-100); Mean Platelet Volume 11.4 fL (9.1-12.4); NEUTROPHILS ABSOLUTE AUTO 4.45 K/mm3 (1.96-9.15); NEUTROPHILS PERCENT AUTO 87 % (41-73); Platelet Count 53 K/mm3 (150-400); RDW Coefficient Variation 18.4 % (11.7-14.2); RDW Standard Deviation 62.4 fL (35.1-46.3); Red Blood Cell Count 2.16 M/mm3 (3.80-5.20); White Blood Cell Count 5.09 K/mm3 (4.00-11.30)
[2020-02-09 06:03] LABS: Bun/Creatinine Ratio 18.8 (12.0-20.0); Calcium, Blood 8.2 mg/dL (8.5-10.1); Creatinine, Blood 1.33 mg/dL (0.40-1.00); Potassium, Blood 4.2 mmol/L (3.5-5.5)
--- NOTE | 2020-02-09 16:26 | NUR ---
SHIFT SUMMARY PT IS A&OX4. PT IS 1 PERSON TRANSFER WITH [facility]. PT WAS UP IN CHAIR FOR LUNCH. PT HAS COMPLAINED OF PAIN IN UPPER RIGHT ABDOMEN. PT GOT A HEATING PAD AND MEDICATED FOR PAIN. DURING MORNING REPORT PT EXPERIENCED NAUSEA AND DRY HEAVING, PT MEDICATED WITH ZOFRAN AND HAS NOT HAD ANYMORE EPISODES. PT IS WEARING TEDS AND SCD'S WERE REMOVED DUE TO PETECHIAE. PT CURENTLY IN BED WITH CALL LIGHT W/IN REACH.
[2020-02-09] MEDS ORDERED: TRAM50 PO (18:04)
[2020-02-09 22:42] LABS: Hematocrit 20.9 % (33.0-51.0); Hemoglobin 6.6 g/dL (11.5-16.0)
--- NOTE | 2020-02-10 05:43 | NUR ---
SHIFT SUMMARY PT IS AN 84 Y/O FEMALE, ADMITTED FOR SEPSIS WITH A HX OF LIVER CA WITH METS. SHE IS A&O X 2, ON BEDREST. PT C/O PAIN AT START OF SHIFT, ORDERED TRAMADOL DID NOT RELIEVE IT. THE HOSPITALIST DR JUSTICE WAS NOTIFIED, AND OXYCODONE ORDERED. PT SLEPT WELL AFTER THAT. SHE RECEIVED 2 UNIT PRBC PER ORDER. HR WAS ELEVATED, ST IN THE 100-110S PER TELE MONTIOR TECH. VITAL SIGNS OTHERWISE STABLE. NO C/O NAUSEA OR SOB. PT IS ON 1L OF O2 VIA NC. NO OTHER ACUTE CHANGES IN PT CONDITION NOTED DURING THE NIGHT. WILL CONTINUE TO MONITOR AND TREAT PER EMAR UNTIL HAND OFF TO DAY SHIFT RN.
[2020-02-10 07:25] LABS: BASOPHILS ABSOLUTE AUTO 0.03 K/mm3 (0.00-0.23); BASOPHILS PERCENT AUTO 0 % (0-2); EOSINOPHILS PERCENT AUTO 0 % (0-6); Hematocrit 31.4 % (33.0-51.0); Hemoglobin 10.5 g/dL (11.5-16.0); IMMATURE GRAN ABSOLUTE AUTO 0.08 K/mm3 (0.00-0.10); IMMATURE GRAN PERCENT AUTO 1 % (0-1); LYMPHOCYTES ABSOLUTE AUTO 0.76 K/mm3 (0.84-5.20); LYMPHOCYTES PERCENT AUTO 7 % (21-46); MONOCYTES ABSOLUTE AUTO 0.39 K/mm3 (0.16-1.47); MONOCYTES PERCENT AUTO 4 % (4-13); Mean Corpuscular HGB 30.1 pg (26.0-34.0); Mean Corpuscular HGB Conc 33.4 g/dL (31.5-36.5); Mean Corpuscular Volume 90 fL (80-100); Mean Platelet Volume 10.2 fL (9.1-12.4); NEUTROPHILS ABSOLUTE AUTO 9.49 K/mm3 (1.96-9.15); NEUTROPHILS PERCENT AUTO 88 % (41-73); RDW Coefficient Variation 16.8 % (11.7-14.2); RDW Standard Deviation 53.1 fL (35.1-46.3); Red Blood Cell Count 3.49 M/mm3 (3.80-5.20); White Blood Cell Count 10.75 K/mm3 (4.00-11.30)
[2020-02-10 07:38] LABS: Bun/Creatinine Ratio 18.8 (12.0-20.0); Calcium, Blood 8.4 mg/dL (8.5-10.1); Creatinine, Blood 1.17 mg/dL (0.40-1.00); Potassium, Blood 4.3 mmol/L (3.5-5.5)
[2020-02-10 07:45] LABS: Platelet Count 39 K/mm3 (150-400)
[2020-02-10 11:28] LABS: Vancomycin, Trough 14.2 ug/mL (5.0-10.0)
--- NOTE | 2020-02-10 16:04 | NUR ---
SHIFT SUMMARY PATIENT MEDICATED X1 FOR ABDOMINAL PAIN AND GIVEN KPAD FOR COMFORT. DENIES NAUSEA AND SHORTNESS OF BREATH. PATIENT UP SBA TO BSC/CHAIR. PATIENT'S SON VISITED IN AFTERNOON. PATIENT STATES SHE WOULD LIKE TO GO TO REHAB TO GET STRONGER. PATIENT WORKED WITH PT TODAY.
--- NOTE | 2020-02-11 06:24 | NUR ---
SHIFT SUMMARY PT IS AN 84 Y/O FEMALE, ADMITTED FOR SEPSIS WITH A CURRENT DX OF LIVER CA WITH METS. SHE IS A&O X 2, INCONTINENT, 1PA IF OUT OF BED. PT WAS MEDICATED ONCE FOR RUQ ABD PAIN WITH PRN OXYCODONE. NO C/O NAUSEA OR SOB. PT SLEPT WELL THROUGH THE NIGHT OTHERWISE. TELE SHOWED NSR IN THE 90S. VITAL SIGNS STABLE. NO ACUTE CHANGES IN PT CONDITION NOTED DURING THE NIGHT. WILL CONTINUE TO MONITOR AND TREAT PER EMAR UNTIL HAND OFF TO DAY SHIFT RN.
--- NOTE | 2020-02-11 10:00 | NUR ---
1000 PT HAS BEEN MOANING "OW" THIS AM. TRIED EARLIER PAIN MEDICATION FOR PAIN IN HOPES OF CALMING SO PT COULD COMMUNICATE BETTER. PT NOT RESPONDING ADEQUATELY. DOESNOT GIVE ME NAME, DATE. JUST "OW". H/R REG, NO MURMER NOTED. PER TELE, S TACH RATE 108. LUNGS CLEAR RESP EASY, UNLABORED, BUT IS QUITE RESTLESS. BT X4 LAST BM PER COMPUTER 2 DAYS. VOIDS INCONT. NOTIFED OF CHANGES. SHE CAME TO SEE PT. CBG ORDERED PRN. NOW AT 83. BED IN LOW POSITIOIN, CALL LITE IN REACH, BED ALARM ON FOR SAFETY
[2020-02-11 11:43] LABS: BASOPHILS ABSOLUTE AUTO 0.03 K/mm3 (0.00-0.23); BASOPHILS PERCENT AUTO 0 % (0-2); EOSINOPHILS ABSOLUTE AUTO 0.01 K/mm3 (0.00-0.68); EOSINOPHILS PERCENT AUTO 0 % (0-6); IMMATURE GRAN PERCENT AUTO 1 % (0-1); LYMPHOCYTES PERCENT AUTO 8 % (21-46); MONOCYTES ABSOLUTE AUTO 0.38 K/mm3 (0.16-1.47); MONOCYTES PERCENT AUTO 4 % (4-13); Mean Corpuscular HGB 30.6 pg (26.0-34.0); Mean Corpuscular HGB Conc 33.3 g/dL (31.5-36.5); Mean Corpuscular Volume 92 fL (80-100); Mean Platelet Volume 12.6 fL (9.1-12.4); NEUTROPHILS ABSOLUTE AUTO 8.46 K/mm3 (1.96-9.15); NEUTROPHILS PERCENT AUTO 87 % (41-73); RDW Coefficient Variation 17.7 % (11.7-14.2); RDW Standard Deviation 57.6 fL (35.1-46.3); Red Blood Cell Count 3.27 M/mm3 (3.80-5.20); White Blood Cell Count 9.78 K/mm3 (4.00-11.30)
[2020-02-11 12:02] LABS: Albumin/Globulin Ratio 0.7 (0.8-1.8); Bilirubin, Total 0.9 mg/dL (0.1-1.0); Bun/Creatinine Ratio 27.1 (12.0-20.0); Calcium, Blood 8.6 mg/dL (8.5-10.1); Creatinine, Blood 1.07 mg/dL (0.40-1.00); Potassium, Blood 4.2 mmol/L (3.5-5.5); Thyroid Stimulating Hormone 1.35 uIU/mL (0.360-4.800)
[2020-02-11 12:03] LABS: Platelet Count 21 K/mm3 (150-400)
--- NOTE | 2020-02-11 12:32 | NUR ---
REPORTED LABS TO AND SHE AWARE AND WORKING ON ORDERS.
[2020-02-11 12:54] LABS: Hematocrit 30.5 % (33.0-51.0); Hemoglobin 10.1 g/dL (11.5-16.0); Mean Corpuscular HGB 30.2 pg (26.0-34.0); Mean Corpuscular HGB Conc 33.1 g/dL (31.5-36.5); Mean Corpuscular Volume 91 fL (80-100); RDW Coefficient Variation 17.5 % (11.7-14.2); RDW Standard Deviation 57.5 fL (35.1-46.3); Red Blood Cell Count 3.34 M/mm3 (3.80-5.20); White Blood Cell Count 9.72 K/mm3 (4.00-11.30)
[2020-02-11 13:23] LABS: Platelet Count 22 K/mm3 (150-400)
[2020-02-11 13:27] LABS: BAND PERCENT MAN 2 % (0-8); BASOPHILS PERCENT MAN 0 % (0-2); EOSINOPHILS PERCENT MAN 0 % (0-6); LYMPHOCYTES ABSOLUTE MAN 0.48 K/mm3 (0.84-5.20); LYMPHOCYTES PERCENT MAN 5 % (21-46); MONOCYTES ABSOLUTE MAN 0.38 K/mm3 (0.16-1.47); MONOCYTES PERCENT MAN 4 % (4-13); NEUTROPHILS ABSOLUTE MAN 8.84 K/mm3 (1.96-9.15); SEG NEUTROPHILS PERCENT MAN 89 % (41-73); TOTAL CELLS COUNTED 100
--- NOTE | 2020-02-11 13:46 | NUR ---
WANTS PT TX TO PCU, MOVING TO PCU 11. REPORT GIVEN TO ANIRUDH Cohen RN. [id number]
--- NOTE | 2020-02-11 16:20 | NUR ---
SPOKE WITH DR. MELTON. NOTIFIED HER LACTIC ACID IS LATE BEING DRAWN BECAUSE THERE WAS MULTIPLE ATTEMPTS TO GET A POWERGLIDE PLACED (PATIENT NEEDS LINE ABOVE AC FOR CT PE STUDY). PATIENT STILL CONFUSED, MOSTLY SAYING "OW, OW, OW" REPEATEDLY. DR. MELTON STATES SHE IS AWARE OF THIS AND THAT IT IS A CHANGE FROM HER MENTATION YESTERDAY.
--- NOTE | 2020-02-11 18:41 | NUR ---
SHIFT SUMMARY: PATIENT TRANSFERRED TO PCU FROM MEDICAL FLOOR DUE TO CHANGE IN MENTAL STATUS. PATIENT MOSTLY SAYS "OW OW OW" REPEATEDLY UNLESS SHE IS LEFT ALONE AND THEN SHE IS ABLE TO REST QUIETLY. ON 2L O2 VIA NC. SINUS RHYTHM - SINUS TACH ON TELE. POWERGLIDE PLACED TO [place]. CT COMPLETED. TURNING Q2H. PICTURES TAKEN OF EXCORIATIONS TO BUTTOCKS AND PRESSURE ULCER TO COCCYX. LACTIC ACID STILL CRITICAL BUT DOWN FROM PREVIOUS, MD AWARE. WILL CONTINUE TO MONITOR AND REPORT TO ONCOMING RN.
[2020-02-12 03:27] LABS: BASOPHILS ABSOLUTE AUTO 0.01 K/mm3 (0.00-0.23); BASOPHILS PERCENT AUTO 0 % (0-2); EOSINOPHILS PERCENT AUTO 0 % (0-6); Hematocrit 25.3 % (33.0-51.0); Hemoglobin 8.2 g/dL (11.5-16.0); IMMATURE GRAN ABSOLUTE AUTO 0.07 K/mm3 (0.00-0.10); IMMATURE GRAN PERCENT AUTO 1 % (0-1); LYMPHOCYTES ABSOLUTE AUTO 0.53 K/mm3 (0.84-5.20); LYMPHOCYTES PERCENT AUTO 8 % (21-46); MONOCYTES PERCENT AUTO 4 % (4-13); Mean Corpuscular HGB Conc 32.4 g/dL (31.5-36.5); Mean Corpuscular Volume 93 fL (80-100); NEUTROPHILS ABSOLUTE AUTO 6.18 K/mm3 (1.96-9.15); NEUTROPHILS PERCENT AUTO 87 % (41-73); RDW Coefficient Variation 17.8 % (11.7-14.2); RDW Standard Deviation 59.4 fL (35.1-46.3); Red Blood Cell Count 2.73 M/mm3 (3.80-5.20); White Blood Cell Count 7.09 K/mm3 (4.00-11.30)
[2020-02-12 03:30] LABS: Platelet Count 15 K/mm3 (150-400)
[2020-02-12 03:44] LABS: Albumin, Blood 1.8 g/dL (3.4-5.0); Albumin/Globulin Ratio 0.7 (0.8-1.8); Bilirubin, Total 0.9 mg/dL (0.1-1.0); Bun/Creatinine Ratio 22.8 (12.0-20.0); Creatinine, Blood 1.23 mg/dL (0.40-1.00); Globulin, Blood 2.6 g/dL (2.2-4.0); Potassium, Blood 4.1 mmol/L (3.5-5.5); Total Protein, Blood 4.4 g/dL (6.4-8.2)
--- NOTE | 2020-02-12 04:45 | NUR ---
LOW BLOOD PRESSURE DR POWELL CALLED AND NOTIFIED THAT PATIENT'S MAP HAS BEEN IN THE HIGH FIFTY'S AND LOW SIXTY'S FOR THE LAST FEW BP CHECKS. DR POWELL ALSO NOTIFIED OF PATIENT'S CRITICAL PLATELET COUNT. PATIENT'S LOW BLOOD SUGAR WAS ALSO NOTED AND ORDERS WERE RECIEVED FOR IT. DR POWELL AWARE THAT PATIENT HAS BEEN CRYING OUT "OW, OW, OW" ALMOST CONSTANTLY THIS MORNING AND THAT TYLENOL HAS NOT APPEARED TO RELIEVE PATIENT'S DISCOMFORT. AN ORDER TO TRANSFER TO ICU WAS OBTAINED DUE TO LOW BLOOD PRESSURE.
--- NOTE | 2020-02-12 05:20 | NUR ---
TRANSFER NOTE PATIENT APPEARS TO GET STUCK ON ONE WORD AT A TIME AND WILL CRY OUT THE SAME WORD OVER AND OVER. PATIENT VERY DROWSY AT THE BEGINNING OF THE SHIFT BUT HAS BECOME MORE AWAKE THE NIGHT PROGRESSED. PATIENT HAS BEEN AWAKE AND CRYING OUT FOR THE LAST SEVERAL HOURS. PATIENT MEDICATED FOR PAIN ABLE DUE TO LOW BLOOD PRESSURE. PATIENT MEDICATED FOR LOW BLOOD SUGAR PER EMAR. PATIENT APPEARS VERY AGITATED AND UNSETTLED THIS MORNING. PATIENT TRANSFERED TO ICU DUE TO LOW BLOOD PRESSURE. REPORT GIVEN TO AMIRAH ADAMS. PATIENT SENT OVER TO ICU AT APPROX 0510, ALL BELONINGS SENT WITH PATIENT.
--- NOTE | 2020-02-12 07:22 | NUR ---
CARE ASSUMED 0510, TRANSFER FROM PCU 11 TO ICU 3 PT UNABLE TO ANSWER QUESTIONS/FOLLOW DIRECTIONS. STATES "OW, OW, OUCH, MOMMY, NO" FREQUENTLY. WHEN ASKED IF SHE KNEW WHERE SHE WAS PT SAID "[facility]" ONCE BUT WAS UNABLE TO REPEAT IT. PT TRANSFERED DUE TO MAP OF 59. STARTED ON LEVOPHED AT 3 MCG/MIN TO KEEP MAP > 65. PTS CBG 67, DR. POWELL CALLED AND RECIEVED ORDERS TO GIVE 1/2 AMP D50, CBG IMPROVED TO 106. PT ON 2 L VIA NC, SPO2 95%, LUNG SOUNDS CLEAR. ATTENDS IN PLACE. NSR.
--- NOTE | 2020-02-12 07:30 | NUR ---
ASSUMED CARE: REPORT RECEIVED FROM BRYAN Sellers RN. ASSUMED CARE OF THIS PT AT APPROX 0700. ON ASSESSMENT, THE PT IS AWAKE, REPEATEDLY STATING "OW." WHEN ASKED IF HER PAIN IS LOCATED IN HER ABDOMEN, SHE NODS YES & BEGINS STATING "OW, BELLY" REPEATEDLY. THE PT HAS ONLY A TYLENOL SUPPOSITORY ORDERED FOR PAIN MANAGEMENT THAT WAS GIVEN PRIOR TO ICU TX W/ NO IMPROVEMENT TO PAIN LEVEL, DOCUMENTED PER EMAR. CALL TO DR MELTON REGARDING PT's UNCONTROLLED PAIN & ORDERS PLACED FOR MEDS. LS ARE CLEAR T/O, PT ON 2L NC W/ O2 SATS > 95%, DESATS TO 88% WHEN NASAL CANNULA REMOVED. MONITOR SHOWS SR W/ HR 90s, BP STABLE W/ LEVOPHED ON STANDBY SINCE 614, PER REPORT. SBP 80s AT TIMES, MAP MAINTAINS > 60. BT HYPERACTIVE, PO INTAKE TO BE HELD R/T AMS. PT INCONTINENT OF URINE, ATTENDS CDI. SKIN CONDITION OVERALL INTACT, FRAGILE - SEE ASSESSMENT. WILL CONTINUE TO MONITOR & UPDATE NEEDED.
--- NOTE | 2020-02-12 07:30 | NUR ---
SHIFT SUMMARY LEVOPHED ON STANDBY SINCE 614 DUE TO MAP > 75. PT CONTINUES TO SAY "OW, OW." UNABLE TO FOLLOW DIRECTIONS. POWERGLIDE IN LEFT UPPER ARM, INFUSING FLUIDS. RIGHT WRIST IV, INFUSING TKO. PT REMAINS IN NSR. VSS. WILL REPORT TO ONCOMING SHIFT.
--- NOTE | 2020-02-12 09:24 | NUR ---
Echocardiogram completed.
--- NOTE | 2020-02-12 09:30 | NUR ---
DR MELTON: PROVIDER AT BEDSIDE TO EVAL PT THIS AM. UPDATED HER ON PT's IMPROVED BP READINGS & THAT LEVOPHED HAS NOT BEEN IN USE SINCE 614. SHE STS THAT IF THE PT REMAINS STABLE UNTIL APPROX 1100, SHE MAY BE CHANGED TO PCU STATUS. THE PT HAS RESPONDED WELL TO PAIN MEDICATION PER EMAR & IS NOW RESTING QUIETLY. NO OTHER CHANGES AT THIS TIME.
[2020-02-12 10:58] LABS: Influenza A, PCR Negative (NEGATIVE); Influenza B, PCR Negative (NEGATIVE); SARS-Cov-2 (COVID-19) PCR, MMC Negative (NEGATIVE)
[2020-02-12 10:59] LABS: Resp Syncytial Virus, PCR Negative (NEGATIVE)
--- NOTE | 2020-02-12 11:00 | NUR ---
Clinical Visit: Pt is laying in bed, moaning. Her son is at bedside and trying to get her to communicate. He is acually snapping his fingers in her face saying, "wake up!" This writer editor present for doctor interview with family member. Clinical presentation discussed. Code status was discussed as well. Demar states that the pt's wishes were to live -he is not willing to change her status to DNR since he knows the pt's goals were "to live." Demar states that he is the decision maker for his mother. He states that his sister cannot handle making decisions, therefore, it is him. He also states that his mother told him that he was "in charge." Demar seems to be at 6th grade reading level in the word choices he makes. He declined to have writen materials on any of the conversations held today - also declined information on making decisions for family members. He prefers face to face, direct-languaged dialogue and used the phrase, "just be blunt" several times. Linear information seems to be best.
--- NOTE | 2020-02-12 11:35 | NUR ---
FAMILY MEETING: GIGI GILBERT, PALLIATIVE CARE RN, & PT's SON, MELCHOR, ARE AT BEDSIDE COMPLETING A FAMILY MEETING AT THIS TIME. SEE PALLIATIVE CARE NOTE.
--- NOTE | 2020-02-12 13:02 | NUR ---
BELONGINGS: PT's SON HAS TAKEN HER BELONGINGS HOME W/ HIM UPON LEAVING THE HOSPITAL.
--- NOTE | 2020-02-12 14:50 | NUR ---
TRANSFER TO PCU: REPORT HAS BEEN GIVEN TO SHABANA Escobar RN TO ASSUME CARE. PT HAS BEEN TAKEN VIA BED TO ROOM PCU-10. ALL BELONGINGS, CHART & MEDS HAVE BEEN TAKEN OVER W/ PT. PT's SON, MELCHOR, WAS AWARE OF PENDING TX TO PCU PRIOR TO HIS LEAVING THE HOSPITAL.
--- NOTE | 2020-02-12 17:34 | NUR ---
SHIFT NOTE PT ARRIVED FROM ICU ALERT CONFUSED, YELLING OUT "OW". PT WAS ABLE TO EXPRESS THAT SHE IS HURTING IN HER ABD, UNABLE TO ASSESS PAIN LEVEL, PT MOVING AROUND CONSTANTLY AND SHOUTING OUT. PT WAS MEDCIATED WITH 0.5MG DILAUDID FOR PAIN WHICH WAS TOLERATED WELL, SPO2 MONITOR WAS PLACED POST DILAUDID ADMIN WITH SPO2 95%, PT SLEEPING SOUNDLY. PT REMAINS FULL CODE AFTER FAMILY MEETING. NO URINE OUTPUT OR BM SINCE ARRIVING TO PCU. ZOSYN INFUSING
--- NOTE | 2020-02-12 18:26 | NUR ---
Family Phone Call Communications: Recieved call from pt's daughter, Maya. She is distressed and has just talked to her brother, Demar. She is wanting to "come in and say goodbye because she's going to ." Reviewed comfort measures and end of life care. Reviewed pt's current clinical condition, issues, concerns. Instructed that pt is very sick, she is at risk for sudden . Instructed on resusitation efforts and risk. After hearing this, Maya agrees to comfort measures, DNR. She is also asking for the hospital's [facility] to assist in POA and Last Will documents. Instructed that these cannot be completed without the pt's mentation returning. Later Entry: Recieved call from pt's son, Demar directly after conversation with sister. He is now speaking loudly over the phone to stop comfort measures and "put the full code back on!" This RN explains that no action was taken in the plan of care. He continues, "I am god. Don't pay attention to her, mom put ME in charge of all of this, so until she wakes up and tells you herself, I AM GOD! Plan made for follow up visit for tomorrow. Pt's daughter, Maya, and her 16 year old son will be here as well. Visit will be a welcome opportunity to review pt's condition and options. Demar does not have POA paperwork completed and does not have legal documents to say that he is the only decision maker.
[2020-02-13 03:49] LABS: BASOPHILS ABSOLUTE AUTO 0.01 K/mm3 (0.00-0.23); BASOPHILS PERCENT AUTO 0 % (0-2); Hematocrit 26.2 % (33.0-51.0); Hemoglobin 8.3 g/dL (11.5-16.0); LYMPHOCYTES ABSOLUTE AUTO 0.65 K/mm3 (0.84-5.20); LYMPHOCYTES PERCENT AUTO 10 % (21-46); MONOCYTES ABSOLUTE AUTO 0.23 K/mm3 (0.16-1.47); MONOCYTES PERCENT AUTO 3 % (4-13); Mean Corpuscular HGB 30.2 pg (26.0-34.0); Mean Corpuscular HGB Conc 31.7 g/dL (31.5-36.5); Mean Corpuscular Volume 95 fL (80-100); RDW Coefficient Variation 18.5 % (11.7-14.2); RDW Standard Deviation 62.2 fL (35.1-46.3); Red Blood Cell Count 2.75 M/mm3 (3.80-5.20); White Blood Cell Count 6.79 K/mm3 (4.00-11.30)
[2020-02-13 04:07] LABS: Albumin, Blood 1.7 g/dL (3.4-5.0); Albumin/Globulin Ratio 0.6 (0.8-1.8); Bilirubin, Total 0.7 mg/dL (0.1-1.0); Bun/Creatinine Ratio 18.4 (12.0-20.0); Calcium, Blood 7.8 mg/dL (8.5-10.1); Creatinine, Blood 1.47 mg/dL (0.40-1.00); Globulin, Blood 2.8 g/dL (2.2-4.0); Potassium, Blood 3.7 mmol/L (3.5-5.5); Total Protein, Blood 4.5 g/dL (6.4-8.2)
[2020-02-13 04:16] LABS: EOSINOPHILS PERCENT AUTO 0 % (0-6); IMMATURE GRAN ABSOLUTE AUTO 0.15 K/mm3 (0.00-0.10); IMMATURE GRAN PERCENT AUTO 2 % (0-1); NEUTROPHILS ABSOLUTE AUTO 5.75 K/mm3 (1.96-9.15); NEUTROPHILS PERCENT AUTO 85 % (41-73)
[2020-02-13 04:17] LABS: Platelet Count 10 K/mm3 (150-400)
--- NOTE | 2020-02-13 06:12 | NUR ---
SHIFT SUMMARY JOCE IS ABLE TO ANSWER YES AND NO QUESTIONS. AT TIMES JOCE WILL REPEAT WORDS, IT IS UNCLEAR WHAT SHE IS SAYING, SOMETIMES SAYING "OW, OW, OW". MEDICATED VIA EMAR, WITH GOOD RELIEF. PATIENT WAS ABLE TO REST. VITAL SIGNS STABLE WITH NO ACUTE CHANGES. ON 3L OF O2 NC. LUNGS CLEAR WITH INTERMITTENT WHEEZING, RESPIRATORY CONSULTED THIS SHIFT WITH NEW ORDERS ADDED. ON TELE - SINUS TACH WITH HR IN THE 100's. Q2 TURNS, ALLYVEN DRESSING ON COCCXY UNABLE TO VISUALIZE. ATTENDS IN PLACE WITH INCONTINENCE OF URINE THIS SHIFT. D5W NS RUNNING AT 125 ML/HR IN [place]. R WRIST IV SALINE LOCKED. CRITICAL LAB THIS AM - PLATELET OF 10, DR. POWELL NOTIFIED, SHE RECOMMENDED DAY SHIFT DOCTOR ASSESS PATIENT. WILL REPORT OFF TO DAY SHIFT. BED REMAINED LOW, LOCKED AND CALL LIGHT WAS IN REACH.
--- NOTE | 2020-02-13 07:12 | NUR ---
ASSUMED CARE: PT LAYING IN BED, MOANING AT THIS TIME. SINUS TACH 103 ON TELE. WILL MEDICATE FOR PAIN ABLE.
--- NOTE | 2020-02-13 09:25 | NUR ---
DR MELTON WENT INTO SEE PT AND STATES SHE IS IMPROVED FROM YESTERDAY. PT WAS ABLE TO SIT UPRIGHT IN BED EATING BREAKFAST. NO ACUTE NEEDS AT THIS TIME.
--- NOTE | 2020-02-13 11:23 | NUR ---
Clinical Visit: Pt is alert, not oriented. She reports she is "just worried." She is writhing in bed and states, "I'm just worried." Her brow is furrowed. She does appear to be experiencing anguish. Some conversation with her. She would start saying "ow," she states she is not hurt. Pt redirectable to other topics for short amouts of time before she would begin saying "ow" again. Ryanne, pt's nurse, states that the pt has eaten some breakfast today. Clinically, the pt has improved - more awake and saying some words during conversation today. Spoke to Dr. Ruano. Updated on plans for family conversation today, based on my conversations with the family members over the phone. This no longer seems appropriate as pt is waking up and family has stated that code status will not be changed and comfort care discussion will be delayed until she gets better to make her own choices regarding the matter, or until her health deteriorates. Family was very clear on upholding the pt's wish "to live." Attempted to call Maya and Demar. Both of their phones are busy and not ringing through. Attempted call one hour later; this was same as previously attempted calls. Will remain available.
--- NOTE | 2020-02-13 12:32 | NUR ---
PT'S SON CALLED TO ATTEMPT COORDINATING A FAMILY MEETING WITH PALLIATIVE CARE. MESSAGE LEFT WITH PALLIATIVE CARE NURSE AND SCREENER AWARE OF 3 VISITORS COMING. WILL ATTEMPT TO CONTACT PALLIATIVE CARE NURSE WHEN FAMILY ARRIVES.
--- NOTE | 2020-02-13 13:55 | NUR ---
FAMILY AT BEDSIDE, PALLIATIVE CARE NURSE HAD MEETING WITH THEM. FAMILY REMAINS AT BEDSIDE AT THIS TIME.
--- NOTE | 2020-02-13 16:45 | NUR ---
Clinical Visit: Pt is alert, she is aware of surroundings, recognizing family members - oriented X2. Family is concerned that she is having anxiety. They are also concerned that she is being treated for pain excessively and not addressing anxiety. Time spent with family members. Son and daughter are present, so is the pt's grandson. Family appears to value quantity over quality. They would like to preserve life, even if it causes suffering - such as in chest compressions. No other concerns. They percieve the pt to be "out of the kiran" and expect a complete recovery.
--- NOTE | 2020-02-13 16:50 | NUR ---
PT BEGAN DESATURATING AND DEVELOPED A NEW WHEEZE. IV FLUIDS STOPPED AND PT PLACED IN NAIK'S POSITION. CALL TO DR MELTON WHO ORDERED FLUIDS DC'D, BNP, AND CXR. CAR SUPERVISOR AWARE AND ASSISTING.
--- NOTE | 2020-02-13 18:43 | NUR ---
SHIFT SUMMARY: PT HAS BEEN CONFUSED T/O DAY BUT AWAKE AND TALKING TO STAFF. UNABLE TO ANSWER QUESTIONS IN AN ORIENTED MANNER. FAMILY HAD MEETING WITH PALLIATIVE CARE BUT NO NEW ORDERS OR SUGGESTIONS AT THIS TIME. MEDICATED FOR PAIN T/O DAY. OFF IV FLUIDS AT THIS TIME DUE TO AN OVERLOAD EPISODE. NOTHING ACUTE AT THIS TIME. SATTING LOW 90S ON 3L O2. NO FURTHER NEEDS AT THIS TIME.
--- NOTE | 2020-02-14 02:33 | NUR ---
OXYGEN UPDATE PT WAS ON 3 L NC MAINTAINING SATS 93-94%. DESATED AT 0130 MAINTAINING 89%. RESPIRATORY CONSULTED, LUNGS SOUND CLEAR. CHANGED TO HIGH FLOW NASAL CANNULA WITH HUMIDITY AT 5 L MAINTAINING SATS AT 90-91%. WILL CONTINUE TO MONITOR.
--- NOTE | 2020-02-14 03:18 | NUR ---
HEART RATE UPDATE JOCE HAS BEEN SINUS TACH WITH HR IN THE 110-120'S THIS SHIFT WITH TWO EPISODES JUMPING TO THE 170'S FOR ABOUT 1 MIN EACH TIME. THESE EPISODES SEEM TO BE RELATED TO TURNING AND CHANGING HER ATTENDS. DR. POWELL NOTIFIED ABOUT HEART RATE AND INCREASING NEED OF OXYGEN (SEE PREVIOUS NOTE). RECOMMENDED TO CONTINUE TO MONITOR AT THIS TIME WITH NO NEW ORDERS.
[2020-02-14 04:26] LABS: BASOPHILS ABSOLUTE AUTO 0.01 K/mm3 (0.00-0.23); BASOPHILS PERCENT AUTO 0 % (0-2); Hematocrit 26.1 % (33.0-51.0); Hemoglobin 8.2 g/dL (11.5-16.0); LYMPHOCYTES ABSOLUTE AUTO 0.83 K/mm3 (0.84-5.20); LYMPHOCYTES PERCENT AUTO 13 % (21-46); MONOCYTES ABSOLUTE AUTO 0.28 K/mm3 (0.16-1.47); MONOCYTES PERCENT AUTO 4 % (4-13); Mean Corpuscular HGB 30.1 pg (26.0-34.0); Mean Corpuscular HGB Conc 31.4 g/dL (31.5-36.5); Mean Corpuscular Volume 96 fL (80-100); RDW Coefficient Variation 19.1 % (11.7-14.2); RDW Standard Deviation 65.9 fL (35.1-46.3); Red Blood Cell Count 2.72 M/mm3 (3.80-5.20); White Blood Cell Count 6.48 K/mm3 (4.00-11.30)
[2020-02-14 04:31] LABS: EOSINOPHILS PERCENT AUTO 0 % (0-6); IMMATURE GRAN ABSOLUTE AUTO 0.09 K/mm3 (0.00-0.10); IMMATURE GRAN PERCENT AUTO 1 % (0-1); Mean Platelet Volume 13.3 fL (9.1-12.4); NEUTROPHILS ABSOLUTE AUTO 5.27 K/mm3 (1.96-9.15); NEUTROPHILS PERCENT AUTO 81 % (41-73); Platelet Count 8 K/mm3 (150-400)
[2020-02-14 04:45] LABS: Albumin, Blood 1.8 g/dL (3.4-5.0); Albumin/Globulin Ratio 0.6 (0.8-1.8); Bilirubin, Total 0.9 mg/dL (0.1-1.0); Bun/Creatinine Ratio 17.3 (12.0-20.0); Calcium, Blood 8.3 mg/dL (8.5-10.1); Creatinine, Blood 1.91 mg/dL (0.40-1.00); Globulin, Blood 2.9 g/dL (2.2-4.0); Potassium, Blood 3.8 mmol/L (3.5-5.5); Total Protein, Blood 4.7 g/dL (6.4-8.2)
[2020-02-14 06:16] LABS: PCO2 Arterial 24.7 mmHg (35-45); PO2 Arterial 58.4 mmHg (80-100); pH Blood Arterial 7.34 (7.35-7.45)
--- NOTE | 2020-02-14 06:43 | NUR ---
KARLA HOBSON CONTINUED TO DESAT ON 5 L HIGH FLOW O2 VIA NASAL CANNULA. RESPIRATORY CONSULTED LUNGS STILL SOUNDING CLEAR. PLACE ON VENTURI MASK AT 14L AND 55% FIO2 SATING AT 91%. DR. POWELL NOTIFIED AT 0557, ABG AND CHEST XRAY ORDERED. AT BEDSIDE AND WILL CONTINUE TO MONITOR.
--- NOTE | 2020-02-14 06:49 | NUR ---
SHIFT SUMMARY JOCE IS ABLE TO ANSWER YES AND NO QUESTIONS AND AT TIMES DISCUSS FAMILY. STILL MOANING AT TIMES WITH REPETATIVE WORDS. WHEN IN THE ROOM PATIENT SEEMS TO BE MORE ANXIOUS. REASSURING PATIENT OF OUR PRESENCE AND HOLDING HAND HAS SEEMED TO REDUCE SOME ANXIETY. ON TELE SINUS TACH HR 110-120'S SEE PREVIOUS NOTE ABOUT 2 EPISODES OF HR IN 170'S. AT START OF SHIFT JOCE WAS ON 3L O2 VIA NASAL CANNULA, CURRENTLY NOW ON 14L WITH 55% FIO2 VIA VENTURI MASK. SEE PREVIOUS NOTES FOR RESPIRATORY STATUS. CLOSELY MONITORING FOR SIGNS OF PAIN AND DESATURATION. SHE WAS ABLE TO TAKE PILLS WITH APPLESAUCE AND DRINK FROM [employer] THIS SHIFT. ATTENDS IN PLACE FOR INCONTINENCE, ALLYVEN OVER COCCXY. WILL CONTINUE TO MONITOR.
--- NOTE | 2020-02-14 11:47 | NUR ---
TAKEN TO MRI AT THIS TIME VIA [facility].
--- NOTE | 2020-02-14 15:45 | NUR ---
UPDATE; TELEPHONE CALL TO DR. LANDAVERDE, INCREASED WORK OF BREATHING WITH O2 SATS 85-88% ON VENTI MASK 55% 15L. VERBAL ORDER GIVEN TO START BIPAP.
--- NOTE | 2020-02-14 16:56 | NUR ---
SHIFT SUMMARY; OPENS EYES TO VERBAL AND STIMULI ONLY DURING SHIFT. MOANS WHEN SPOKEN TO. VENTI MASK IN PLACE ON ASSUMING CARE AT 0700. 15L AT 55%. PER INFORMATION TECHNOLOGY AUDIT MANAGER RN WORK OF BREATHING INCREASED DURING NIGHT WITH LOW 02 SATS. HEAD MRI COMPLETE TODAY DUE TO CHANGE IN NEURO STATUS FROM YESTERDAY. UNABLE TO FOLLOW COMMANDS, MOANS ONLY WHEN SPOKE TO. REPOSITIONED Q2 HOURS WITH ATTENDS CHANGES AND RABIA CARE. ORAL CARE COMPLETE [id number], CHANGED TO NPO BY SPEECH THERAPY DUE TO AMS AND RESPIRATORY STATUS. PALLATIVE CARE IN TO SEE PT AND SPOKE WITH SON. SON TO HAVE MEETING TOMORROW AT 10AM TO DISCUSS DECLINING CONDITION. WORK OF BREATHING INCREASED IN AFTERNOON AND SATS 85% WITH VENTI MAXED. SPOKE WITH DR. WIGGINS, RT NOTIFIED FOR BIPAP. BIPAP STARTED AT 1600 WITH CURRENT SETTINGS /6 AT 60%. TOLERATING WELL, WILL CONTINUE TO MONITOR AND TREAT UNTIL CHANGE OF SHIFT.
--- NOTE | 2020-02-14 19:06 | NUR ---
Multiple visits today. to review pt repritory status resting comfortably on bipap with some pain meds. Mutiple converstions with pt son. He wanted to come in but could not manage it with his employer. He is coming in tomorrow for a meeting with the physician. Her son is awaiting input from Doctor Dunn. Advised him that he is going to have to make decision on a plan of care. Patients nurse spoke with patients daughter will try to facilitate the son to accept pt prognosis and address code status.
--- NOTE | 2020-02-14 20:00 | NUR ---
SON MELCHOR AT BEDSIDE, REVIEWED JOCE'S CURRENT STATUS AND PLAN OF CARE. MELCHOR REPEATED TO JOCE "MOM WAKE UP" SHAKING HER HAND. MELCHOR STATED HE WOULD LIKE HIS MOM ON "COMFORT CARE AND DNR" STATING "WE DON'T WANT HER TO SUFFER, WE WANT HER COMFORTABLE". WHEN DISCUSSING COMFORT CARE MEASURES WITH HIM HE STATED HE WOULD LIKE TO KEEP THE BIPAP ON, FLUIDS RUNNING, AND ANTIBIOICS AND PAIN MEDICATION GIVEN TO KEEP HER COMFORTABLE TONIGHT. MELCHOR ALSO STATED HE IS "GOD WHEN IT COMES TO MAKING DECISIONS ABOUT MOM" REFERRING TO HIS YOUNGER SIBLINGS. TWO RN'S IN ROOM WITH MELCHOR AND JOCE AT THE TIME. WHEN ASKING IF HE WOULD LIKE THE BIPAP OFF AND NASAL CANNULA PLACED SO HE COULD TRY AND TALK WITH HIS MOM HE STATED "NO, THAT WOULD DECREASE HER OXYGEN. SHE CAN HEAR ME TALKING TO HER". MELCHOR SAID "MOM, MOM" AND JOCE BRIEFLY OPENED HER EYES TO HIS VERBAL COMMAND. PATIENT WARM TO TOUCH AND BLANKETS REMOVED WITH FAN PLACED FOR COMFORT. COMFORT CARE ORDERS PLACED AND CODE STATUS CHANGED. DNR BAND PLACED ON LEFT WRIST WITH SECOND RN PRESENT. MELCOHR ALSO REMINDED STAFF AT THIS TIME OF LUCI IN THE BACK OF JOCE'S HEAD FROM A FALL "A FEW WEEKS AGO". WILL FOLLOW UP WITH LUCI UPON ASSESSMENT.
--- NOTE | 2020-02-14 22:15 | NUR ---
PATIENT BEGAN TO BE RESTLESS AND MOANING OFF AND ON. PAIN ADDRESSED AND PT RESPONDED WELL SEE EMAR FOR ADMINISTRATION. PRIOR TO AND AFTER ADMINISTERING PAIN MEDICATION PATIENT IN SINUS TACH WITH HR IN 130-140's. NOT ABLE TO GIVE LOPRESSOR AT THIS TIME WITH BP MAP AT 60. WILL CONTINUE TO MONITOR HR AND BP.
--- NOTE | 2020-02-14 23:58 | NUR ---
PATIENT RESTING AT THIS TIME, NO SIGNS OF PAIN. SOME MOANING WITH Q2 TURNS. ANTIBIOTIC CURRENTLY INFUSING. Q4 ORAL CARE, PATIENT REFUSING TO OPEN MOUTH, CLENCHES TEETH. ORAL CARE DONE WITH SWAB/SUCTION TO BEST OF ABILITY WITH SECOND RN. WILL CONTINUE TO MONITOR.
--- NOTE | 2020-02-15 01:47 | NUR ---
DURING Q2 TURNING PATIENT MOANING AND REACHING OUT ARMS IN PAIN, MEDICATED PER EMAR. ABLE TO TURN ON LEFT SIDE TO VISUALIZE STAPELS ON BACK OF HEAD. 5 STAPELS REMOVED WITH ASSISTANCE OF SECOND RN. SMALL SCAB PRESENT, NO DRAINAGE OR REDNESS. AREA LIGHTLY CLEANSED WITH SOAP AND WATER. PATIENT NOW RESTING COMFORTABLY.
--- NOTE | 2020-02-15 04:10 | NUR ---
RESPIRATORY WAS ABLE TO SWITCH PATIENT TO CPAP ON 10 AT 85% FIO2. PATIENT REACHING OUT, MOANING AND SHAKING HEAD BACK AND FORTH. GIVEN PAIN MEDS PER EMAR USING FLACC SCALE TO ASSESS. DURING ORAL CARE HIGH FLOW NASAL CANNULA PLACED ON PATIENT BRIEFLY AND PATIENT DESATS TO THE 60's. WITH ASSISTANCE FROM 2ND RN STILL UNABLE TO HAVE PATIENT OPEN MOUTH. PREFORMED ORAL CARE WITH SWAB AND SUCTION TO BEST OF ABILITY GIVEN PATIENTS RESPIRATORY STATUS AND CLENCHED TEETH. BACK ON CPAP AND NEEDING 80-90% FIO2 TO MAINTAIN SATS. PATIENT NOW CALM AND APPEARS TO BE SLEEPING. ANTIBIOTIC COMPLETED AND FLUIDS RUNNING AT 100 ML/HR. WILL CONTINUE TO MONITOR.
--- NOTE | 2020-02-15 06:02 | NUR ---
UPDATE AND SHIFT SUMMARY: PATIENT IS RESTING, APPEARS TO BE SLEEPING AND CALM. WARM TO TOUCH, LIGHT BLANKETS AND FAN GOING FOR COMFORT. RESPIRATORY SWITCHED PATIENT BACK TO BIPAP. FLUIDS STILL RUNNING AT 100 ML/HR. ATTENDS IN PLACE FOR INCONTINENCE. PATIENT HAS ONLY HAD ONE EPISODE OF URINE INCOTINENCE THS SHIFT. SEE PREVIOUS NOTES FOR UPDATES ABOUT PAIN MANAGEMENT. Q2 TURNS, WITH Q4 ORAL CARE DONE. SON MELCHOR SAID HE WOULD BE BACK THIS AM TO VISIT. WILL CONTINUE TO MONITOR.
--- NOTE | 2020-02-15 07:45 | NUR ---
COMFORT CARE ASSESSMENT PT APPEARS TO BE SLEEPING, ON BIPAP AT 12/10 90%. CHECKED ATTENDS AND REPOSIITONED PT; SPO2 AT 86-87% NOTIFIED RT; INCREASED FIO2 TO 100% SPO2 AT 92% AND TITRATED DOWN TO 95% FIO2. PT RESPONDS TO VERBAL AND TACTILE STIMULI; MOANS AND GROANS. NO S/SX OF PAIN OR DISTRESS NOTED WHEN AT REST. HR 130. OTHER VSS. LS CLEAR, DIM BASES ON BIPAP RESP RATE 28. BS HYPOACTIVE x4 QUADRANTS. NONDEPENDENT EDEMA TO RUE; ELEVATED ON PILLOW AND 1+PITTING EDEMA TO BLE; ELEVATED ON PILLOWS. PT WARM TO TOUCH; REMOVED BLANKET AND LEFT SHEET REMAINING.
--- NOTE | 2020-02-15 10:13 | NUR ---
PT FOUND ARCHING BACK, MOANS IN PAIN, MEDICATED PER EMAR. SPO2 70-80% TITRATED BACK TO 100% FIO2 VIA BIPAP; REPS 28-32; RT AT BEDSIDE. PT APPEARS TO BE RESTING. PALLEATIVE CARE BHAVANI PÉREZ AND THIS RN AT BEDSIDE. PRESS OPERATOR ASSISTANT ATTEMPTING TO CALL FAMILY. WILL CONTINUE TO MONITOR.
--- NOTE | 2020-02-15 10:28 | NUR ---
SON AT BEDSIDE
--- NOTE | 2020-02-15 10:56 | NUR ---
SON MELCHOR AT BEDSIDE THIS AM; ELISA MACARIO AND BHAVANI WELCH AT [facility]. MELCHOR WANTING TO REMOVE BIPAP; MEDICATED FOR DISCOMFORT. DR SETVENS NOTIIFED OF FAMILY DECISION; BIPAP REMOVED. TIME OF 1050; THIS RN AND RAULITO LOPEZ. PT SON LEFT ROOM AT 1058.
--- NOTE | 2020-02-15 11:52 | NUR ---
Spiritual care visit conducted. Patient is minimally responsive and on a Bipap machine. I voice encouraging wishes and hand holding for patient. When patient's son, Demar, arrives I provide a calming presence and as patient peacefully stops breathing after Bipap is removed. Demar grieves appropriately. I say a prayer and then allow Demar time alone with patient.
--- NOTE | 2020-02-15 12:33 | NUR ---
PT LEFT VIA [facility].
--- NOTE | 2020-02-15 13:44 | NUR ---
Called to meet with family pt placed on comfort care and bipap removed. pt passed peacfully with son at her side.
== END 2020-02-15 12:32 | DRG 871 ==
LOC: ER 08:19 → MEDS 08:20 → ICUE 15:03 → MEDS 15:03 → PCU 15:03 → MEDS 15:04 → PCU 02-11 13:19 → ICUE 02-12 05:11 → PCU 02-12 14:53
PROVIDERS: Family Medicine; Physician Assistant; ADMIT Internal Medicine
PROC: 3E033XZ Introduction of Vasopressor into Peripheral Vein, Percutaneous Approach (ICD-10-PCS; principal; 2020-02-12)
DX: A41.9 Sepsis, unspecified organism (principal); I61.9 Nontraumatic intracerebral hemorrhage, unspecified; J18.9 Pneumonia, unspecified organism; R65.21 Severe sepsis with septic shock; G93.41 Metabolic encephalopathy; E87.2 Acidosis; C83.39 Diffuse large B-cell lymphoma, extranodal and solid organ sites; J44.0 Chronic obstructive pulmonary disease with (acute) lower respiratory infection; N18.30 Chronic kidney disease, stage 3 unspecified; Z51.5 Encounter for palliative care; E03.9 Hypothyroidism, unspecified; E78.5 Hyperlipidemia, unspecified; Z20.828 Contact with and (suspected) exposure to other viral communicable diseases; D69.59 Other secondary thrombocytopenia; T45.1X5A Adverse effect of antineoplastic and immunosuppressive drugs, initial encounter; Y92.9 Unspecified place or not applicable; R53.83 Other fatigue; Z66 Do not resuscitate; Z87.891 Personal history of nicotine dependence
CPT/HCPCS: 0241U; 36415; 36430; 36600; 70450; 70551; 71045; 71260; 80048; 80053; 80202; 81001; 82140; 82803; 82947; 83605; 83880; 84145; 84443; 85007; 85014; 85018; 85025; 85027; 86850; 86900; 86901; 86923; 87040; 87086; 92610; 93005; 93010; 93308; 93321; 94640; 94660; 94760; 94762; 96365; 96367; 97110; 97116; 97162; 97165; 97530; 97535; 99285-25; A9270; C1751; G0378; J0456; J0692; J1170; J1650; J2543; J3370; J7030; J7042; J7050; J7060; P9016; P9035; P9612; Q9967